=== PATIENT | female | born 1955 | race Caucasian/White ===

== ENCOUNTER 2019-04-25 09:04 | Day surgery (SDC) | payer SELFPAY ==
[~2019-04-25 09:04] MED LIST: ACETAMINOPHEN 1,000 MG/100 ML BTL IVPB ONE; CEFAZOLIN 2 Gram 2 GM/50 ML BAG IVPB ONE
[2019-04-25] MEDS ORDERED: DEXAMETHASONE 4 MG/ML 1ML VIAL IVP ONE (09:05)
[2019-04-25] MEDS ORDERED: LIDOCAINE 2% MDV (20MG/ML) 20ML VIAL IV ONE (09:05)
[2019-04-25] MEDS ORDERED: PHENYLEPHRINE HCL 10 MG/ML VIAL IVP ONE (09:05)
[2019-04-25] MEDS ORDERED: MORPHINE SULFATE 5 MG/ML VIAL IVP ONE (09:05)
[2019-04-25] MEDS ORDERED: PROPOFOL 10 MG/ML VIAL IV ONE (09:05)
[2019-04-25] MEDS ORDERED: ROPIVACAINE HCL (NAROPIN) /PF 5MG/ML 20ML VIAL IV ONE (09:05)
[2019-04-25] MEDS ORDERED: *PACU ONLY* KETAMINE HCL 10 MG/ML (20ML) VIAL IV ONE (09:05)
[2019-04-25] MEDS ORDERED: MIDAZOLAM HCL 2MG/2ML VIAL IV ONE (09:05)
[2019-04-25 09:21] LABS: ABSOLUTE NEUTROPHIL COUNT 6.05; BASO % 0.9 % (0-6); EOS % 3.3 % (0-6); GRAN % 65.5 % (47-80); HEMATOCRIT 37.6 % (35.0-47.0); HEMOGLOBIN 12.1 gm/dl (11.6-16.0); LYMPH % 24.3 % (16-45); MEAN CELL VOLUME 84.7 fl (81-97); MEAN CORPUSCULAR HEMOGLOBIN 27.3 pg (27-33); MEAN CORPUSCULAR HGB CONC 32.2 g/dl (32-36); MEAN PLATELET VOLUME 8.3 fl (7.4-10.4); PLATELET COUNT 446 K/uL (130-400); RED BLOOD COUNT 4.44 M/uL (3.80-5.40); RED CELL DISTRIBUTION WIDTH 15.2 % (11.5-14.5); WHITE BLOOD COUNT W/O DIFF 9.2 K/uL (4.2-12.2)
[2019-04-25 09:32] LABS: CREATININE 1.3 mg/dL (0.5-0.9)
[2019-04-25] MEDS ORDERED: RINGERS SOLUTION,LACTATED 1,000 ML IV ONE (09:45)
[2019-04-25] MEDS ORDERED: 0.9 % SODIUM CHLORIDE 1000ML 1,000 ML IV ONE ×2 (10:30→13:05)
[2019-04-25] MEDS ORDERED: BUPIVACAINE 0.5% W/EPI MPF 30 ML VIAL SQ ONE (13:02)
--- NOTE | 2019-04-27 07:21 | Operative Note ---
DATE OF SURGERY: 04/25/2019 PREOPERATIVE DIAGNOSIS: Displaced bimalleolar ankle fracture on the right. POSTOPERATIVE DIAGNOSIS: Displaced bimalleolar ankle fracture on the right. OPERATION: Open reduction and internal fixation of right ankle lateral malleolus with a [employer] EVOS lateral distal locking plate. STAFF SURGEON: Kennedy Braswell MD ANESTHESIA: Popliteal block with sedation. PREPARATION: Chloraprep. INDIVIDUAL CONSIDERATIONS: None. PROCEDURE: The patient was taken to the operating room and had a successful induction of a block and then her right leg was prepped and draped in the usual fashion. She was then given IV sedation. The patient had an incision from the tip of the lateral malleolus proximally about 10-12 cm. Skin was infiltrated with 0.5% Marcaine with epinephrine prior. Sharp dissection carried down through skin and subcutaneous tissue. Small veins were coagulated with a Bovie. The patient had a spiral oblique fracture just distal to the syndesmosis which was intact. I opened the fracture site up and then cleared out clot and debris and then held it anatomically reduced with clamps. I placed a single lag screw from anterior to posterior, which was a 3.5 fully threaded cortical screw. This was verified by fluoroscopy. I then fashioned a 7-hole EVOS 2.74/3.5 plate and contoured it to the bone, held it provisionally with a clamp. I was able to fill 3 distal 3.7 locking screws and 4 proximal 3.5 cortical screws, which functioned as an equalization plane. This was verified by fluoroscopy. The ankle was now completely stable and even the small posterior malleolar fracture was reduced. This was all verified by fluoroscopy. After irrigation, tourniquet was let down and hemostasis was obtained with a Bovie. I was only able to approximate the skin with interrupted 3-0 nylon in a vertical mattress fashion. Sterile bulky compressive soft cast and brace were applied. The patient tolerated procedure well. Needle and sponge counts were correct. Estimated blood loss was minimal. The patient was taken back to recovery in good condition. There were no complications. [facility]isty
== END 2019-04-25 14:58 | disposition home or self-care (01) ==
LOC: SUR 09:04
PROVIDERS: ATTEND Orthopaedic Surgery
DX: S82.841A Displaced bimalleolar fracture of right lower leg, initial encounter for closed fracture (principal); G25.81 Restless legs syndrome; K21.9 Gastro-esophageal reflux disease without esophagitis
CPT/HCPCS: 76942; 80048; 85025; 93005; C1713; J2370; J7030; J7120